=== PATIENT | female | born 1965 | race Caucasian/White ===

== ENCOUNTER 2019-06-30 12:19 | Emergency (ER) | payer OTHER ==
[2019-06-30 13:06] LABS: HEMATOCRIT 46.8 % (37.0-47.0); HEMOGLOBIN 15.9 g/dl (12.0-16.0); IMMATURE GRANULOCYTES 0.4 % (0.0-5.0); MEAN CELL VOLUME 85.2 fL CALC (80.0-100.0); NEUT# 11.25 thou/uL (2.00-7.15); RED BLOOD COUNT 5.49 mill/uL (4.20-5.60); RED CELL DISTRI WIDTH 12.6 % (11.5-15.5)
[2019-06-30 13:18] LABS: ALBUMIN 4.9 g/dL (3.2-5.0); ANION GAP 18 (6-22 (CALC)); BUN 17 mg/dL (7-17); BUN/CREATININE RATIO 30 (12-20 (CALC)); CARBON DIOXIDE 21 mmol/l (22-30); CHLORIDE 104 mmol/l (95-108); CREATININE 0.6 mg/dL (0.5-1.0); GFR > 60 ML/MIN (>=60 (CALC)); GFR FOR AFR.AMER. > 60 ML/MIN (>=60 (CALC)); LIPASE 349 u/l (23-300); POTASSIUM 4.8 mmol/l (3.5-5.1); SGOT/AST 51 u/l (14-36); SODIUM 138 mmol/l (137-146); TOTAL PROTEIN 8.3 g/dL (6.3-8.2)
[2019-06-30 13:22] LABS: ALKALINE PHOSPHATASE 80 u/l (38-126); BILIRUBIN, TOTAL 0.7 mg/dL (0.0-1.4)
[2019-06-30] MEDS ORDERED: METFORMIN1000 MG PO (13:33)
[2019-06-30] MEDS ORDERED: JARDIANCE10 MG PO (13:33)
[2019-06-30 15:02] LABS: URINE BILIRUBIN - DIPSTICK NEGATIVE (NEGATIVE); URINE BLOOD DIPSTICK NEGATIVE (NEGATIVE); URINE COLOR YELLOW; URINE GLUCOSE - DIPSTICK >=1000 mg/dL (NEGATIVE); URINE KETONE NEGATIVE (NEGATIVE); URINE LEUK ESTERASE NEGATIVE (NEGATIVE); URINE NITRITE - DIPSTICK NEGATIVE (Negative); URINE PROTEIN - DIPSTICK NEGATIVE (NEG-TRACE); URINE SPECIFIC GRAVITY 1.025; URINE UROBILINOGEN - DIPSTICK 0.2 E.U./dL (0.2)
[2019-06-30] MEDS ORDERED: ONDANSETRON4 MG PO (15:13)
[2019-06-30 15:34] VITALS: BP 119/61
== END 2019-06-30 15:40 | disposition home or self-care (01) | DRG 392 ==
LOC: ED 12:19
PROVIDERS: Family Medicine
DX: R10.12 Left upper quadrant pain (principal); R10.13 Epigastric pain; E11.9 Type 2 diabetes mellitus without complications